=== PATIENT | female | born 1990 | race Hispanic/Latino ===

== ENCOUNTER 2018-02-04 03:18 | Emergency (ER) | payer OTHER ==
[2018-02-04 03:34] VITALS: TEMP 98
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
[2018-02-04 07:06] VITALS: BP 110/68; PULSE 87; RESP 16; O2SAT 98
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
== END 2018-02-04 06:47 | disposition home or self-care (01) ==
LOC: H.ER 03:18
DX: S09.90XA Unspecified injury of head, initial encounter (principal); Y04.0XXA Assault by unarmed brawl or fight, initial encounter; Y92.89 Other specified places as the place of occurrence of the external cause